=== PATIENT | male | born 2000 ===

== ENCOUNTER 2022-08-28 11:47 | Emergency (ER) | payer OTHER ==
[2022-08-28] MEDS ORDERED: LIDOCAINE 5% TOPICAL PATCH TP ONE (12:00)
[2022-08-28] MEDS ORDERED: IBUPROFEN 600 MG TABLET (FP) PO ONE ×2 (12:00→12:06)
[2022-08-28 12:04] VITALS: BP 126/85; PULSE 92; RESP 17; TEMP 99; BMI 19.0
[2022-08-28] MEDS ORDERED: LIDOCAINE 5% TOPICAL PATCH ONE (12:06)
== END 2022-08-28 12:34 | disposition home or self-care (01) ==
LOC: FER 11:47
DX: M54.2 Cervicalgia (principal); S16.1XXA Strain of muscle, fascia and tendon at neck level, initial encounter; R51.9 Headache, unspecified; V59.40XA Driver of pick-up truck or van injured in collision with unspecified motor vehicles in traffic accident, initial encounter; Y93.I9 Activity, other involving external motion
CPT/HCPCS: 99283-25